=== PATIENT | male | born 1975 | race Caucasian/White ===

== ENCOUNTER 2025-02-25 17:24 | Outpatient (OUT) | payer OTHER, SELFPAY ==
--- OUTSIDE RECORDS SUMMARY | 2025-01-27 06:36 | XMS_ITS | Continuity of Care Document ---
Author Organization [facility] Address [address] [place] [address] Phone Care Team Providers Care Volunteer Assistant Name Role Phone Vick SAWYER, Tristan Unavailable Unavailab le Allergies, Adverse Reactions, Alerts Substance Reaction Status Criticality BUPROPION HCL HivesHives Active No Information Medications Medication Instructions Dosage Effective Dates (start - stop) Status Comments Zoloft 50 mg tablet take 1 tablet by oral route every day 50 MG - Active hydroxyzine HCl 25 mg tablet take 1 tablet by oral route every 12 hours as needed as needed for Anxiety 25 MG - Active metoprolol succinate ER 25 mg tablet,extended release 24 hr take 1 tablet by oral route every day 25 MG - Active Lasix 40 mg tablet take 1 tablet by oral route every 2 days 40 MG - Active Zoloft 50 mg tablet take 1 tablet by oral route every day 50 MG - No Longer Active hydroxyzine HCl 25 mg tablet take 1 tablet by oral route every 12 hours as needed as needed for Anxiety 25 MG - No Longer Active Procedures Procedure Date OFFICE/OUTPATIENT VISIT, EST OFFICE/OUTPATIENT VISIT, EST OFFICE/OUTPATIENT VISIT, EST Bp scrn perf rec interval DIAST BP < 80 MM HG SYST BP < 130 MM HG OFFICE/OUTPATIENT VISIT, EST OFFICE/OUTPATIENT VISIT, EST OFFICE/OUTPATIENT VISIT, NEW Advance Directives Directive Yes / No Effective Date File Name No Information Encounters Encounter Description Practice Location Reason(s) For Visit Diagnoses Date Provider Providers Copied on Encounter [facility], [address] [place] [address], [id number] , [place] tel: [phone] [facility] No Information 5 Vick Hudson. [address] [place] [address], [id number] , [place]. tel: [phone] OFFICE/OUTPA TIENT VISIT, [facility], [address] [place] [address], [id number] , [place] tel: [phone] [facility] Cardiology Referral (chief complaint)dep ression (chief complaint) Body mass index [BMI] 60.0-69.9, adultChronic congestive heart failure, unspecified heart failure typeAnxiety and depressionClass 3 severe obesity with serious comorbidity and body mass index (BMI) of 60.0 to 69.9 in adult, unspecified obesity type 5 Vick Hudson. [address] [place] [address], [id number] , [place]. tel: [phone] OFFICE/OUTPA TIENT VISIT, [facility], [address] [place] [address], [id number] , [place] tel: [phone] [facility] F/U CHF (chief complaint)dep ression (chief complaint)Lab draw (chief complaint) Anxiety and depressionChronic congestive heart failure, unspecified heart failure typeLower extremity edemaObstructive sleep apneaColon cancer screeningScreening for HIV (human immunodeficiency virus)Need for hepatitis C screening testNo vaccination-pt refuseBody mass index [BMI] 50.0-59.9, adult 4 Vick Hudson. [address] [place] [address], [id number] , [place]. tel:[phone] OFFICE/OUTPA TIENT VISIT, [facility], [address] [place] [address], [id number] , [place] tel: [phone] [facility] Work Release (chief complaint) Chronic congestive heart failure, unspecified heart failure typeBody mass index [BMI] 60.0-69.9, adult 4 Vick Hudson. [address] [place] [address], [id number] , [place]. tel:[phone] [facility], [address] [place] [address], [id number] , [place] tel:+ [phone] [facility] No Information 4 Vick Hudson. [address] [place] [address], [id number] , [place]. tel:+ [phone] OFFICE/OUTPA TIENT VISIT, [facility], [address] [place] [address], [id number] , [place] tel:+ [phone] [facility] FMLA Paperwork (chief complaint) Chronic congestive heart failure, unspecified heart failure typeLower extremity edemaObstructive sleep apneaBody mass index [BMI] 60.0-69.9, adult 4 Vick Hudson. [address] [place] [address], [id number] , [place]. tel: [phone] OFFICE/OUTPA TIENT VISIT, [facility], [address] [place] [address], [id number] , [place] tel:+ [phone] [facility] FMLA Paperwork (chief complaint) Body mass index [BMI] 60.0-69.9, adultObstructive sleep apneaChronic congestive heart failure, unspecified heart failure typeLower extremity edema 4 Vick Hudson. [address] [place] [address], [id number] , [place]. tel:[phone] OFFICE/OUTPA TIENT VISIT, [facility], [address] [place] [address], [id number] , [place] tel:[phone] [facility] Establishing Care (chief complaint) Chronic congestive heart failure, unspecified heart failure typeLower extremity edemaAnxiety and depressionObstruct conor sleep apneaBody mass index [BMI] 60.0-69.9, adult 4 Vick Hudson. [address] [facility], [place], [place], [id number] , [place]. tel:[phone] Family History Family Member Type Diagnosis Age At Onset No Information Immunizations Vaccine Date Status Comments Spikevax 12y+ refused Source: New Im munization Record Fluarix/Flulaval refused Source: New Immunization Record Payers Payer name Insurance type Covered alliance party ID Authoriza tion(s) [employer] CI [id number] [employer] CI [id number] Social History Type Description Quantity Date Captured Comments Alcohol Use Details Unknown Caffeine Use Details Unknown Tobacco Use Status No Information Smoking Status No Information Sex Male Sexual Orientation Straight or heterosexual Dec Gender Identity Male Chief Complaint And Reason For Visit No Information Reason For Referral Reason For Referral No Information Plan Of Treatment Date Type Action Status Goal Tdap. Due on due Goal FIT-DNA. Due on due Goal FIT. Due on due Goal Zoster vaccine (). Due on due Goal Hep A. Due on du e Goal Tdap Vaccine. Due on 2024 due Goal Depression screening. Due on due Goal FOBT. Due on due Goal Lipid panel. Due on 029 due Goal PRAPARE ASSESSMENT. Due on due Goal CT-Colonography. Due on due Goal Colonoscopy. Due on 025 due Goal Influenza vaccine. Due on due Goal Unhealthy drug use screening . Due on due Goal Hepatitis C screening. Due o n due Goal Influenza vaccine. Due on Ma due Goal Lipid panel. Due on 029 due Goal Hepatitis C screening. Due o n due Goal Tdap Vaccine. Due on 2024 due Goal Unhealthy drug use screening . Due on due Goal Depression screening. Due on due Goal PRAPARE ASSESSMENT. Due on M due Goal Tdap. Due on due Goal Dietary manageme nt education, guidance, and counseling completed Goal Influenza vaccine. Due on Oc due Goal Hepatitis C screening. Due o n due Goal Lipid panel. Due on 024 due Goal Tdap. Due on due Goal Tdap Vaccine. Due on 2023 due Goal Unhealthy drug use screening . Due on due Goal Depression screening. Due on due Goal Hep A. Due on du e Goal PRAPARE ASSESSMENT. Due on O due Goal Lifestyle education regardin g diet completed Goal Hep A. Due on du e Goal Tdap. Due on due Goal PRAPARE ASSESSMENT. Due on due Goal Influenza vaccine. Due on due Goal Depression screening. Due on due Goal Hepatitis C screening. Due o n due Goal Lipid panel. Due on due Goal Tdap Vaccine. Due on 2023 due Goal Unhealthy drug use screening . Due on due Goal Lifestyle education regardin g diet completed Goal Hepatitis C screening. Due o n due Goal Lipid panel. Due on due Goal Depression screening. Due on due Goal Tdap Vaccine. Due on 2023 due Goal PRAPARE ASSESSMENT. Due on due Goal Unhealthy drug use screening . Due on due Goal Influenza vaccine. Due on due Goal Tdap. Due on due Goal Hep A. Due on du e Goal Hepatitis C screening. Due o n due Goal Tdap Vaccine. Due on 2023 due Goal PRAPARE ASSESSMENT. Due on due Goal Tdap. Due on due Goal Lipid panel. Due on due Goal Depression screening. Due on due Goal Unhealthy drug use screening . Due on due Goal Influenza vaccine. Due on due Goal Lifestyle education regardin g diet completed Goal Hep A. Due on du e Goal Depression screening. Due on due Goal Tdap Vaccine. Due on 2023 due Goal PRAPARE ASSESSMENT. Due on due Goal Influenza vaccine. Due on due Goal Hepatitis C screening. Due o n due Goal Tdap. Due on due Goal Lipid panel. Due on due Goal Unhealthy drug use screening . Due on due Goal Dietary manageme nt education, guidance, and counseling completed Goal Hep A. Due on du e Goal Unhealthy drug use screening . Due on due Goal Influenza vaccine. Due on due Goal Tdap. Due on due Goal Lipid panel. Due on due Goal Depression screening. Due on due Goal Tdap Vaccine. Due on 2023 due Goal Hepatitis C screening. Due o n due Goal PRAPARE ASSESSMENT. Due on due Goal Lifestyle education regardin g diet completed Appointment Gabe Fang BOOKED History Of Present Illness Encounter Date Complaint History Of Prese nt Illness depression This is a follow up visit. Related symptoms are well controlled. The client does not present with anxious/fearful thoughts, depressed mood or thoughts of or suicide. The client denies any aggravating factors. The client's relieving factors are medication. Additional information: Latrice TUTTLE. Cardiology Referral Patient pres ents for Cardiology referral. Patient is currently taking Metoprolol and Lasix. Patient states he was seeing Cardiology in [place] but they never return his call - LACEY Garcia. Lab draw Labs drawn from right antecube in one attempt successful. Patient tolerated well.//Yemi ALLISON F/U CHF States he got hi s CPAP in March and he has been sleeping in his bed now, no longer needs to sleep in recliner. States he was having 120+ APNIC events per hour, now he is down to 3. His bed allows him to raise his legs up while he is sleeping, so he isn't having trouble with swelling in his legs.Says he hasn't needing his hydroxizine since he got his CPAP.States his breathing is much improved. 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 Patient said he did not go to follow-up because he wants to get his weight down by diet and exercise.//Yemi ALLISON depression This is a follow up visit. Related symptoms are controlled. There is improvement of initial symptoms. The client reports functioning as not difficult at all. The client does not present with anxious/fearful thoughts, depressed mood, difficulty concentrating, difficulty falling asleep, difficulty staying asleep, excessive worry, fatigue or thoughts of or suicide. The client denies any aggravating factors. The client's relieving factors are a good response to medication. Additional information: Latrice TUTTLE. Work Release Patient states h e is feeling much better. Doing 2 miles on treadmill without much effort. Was told by to hold hydroxizine for now.Saw Vascular Doctor and is scheduled back in February. Has 2nd sleep study appointment tonight.//Yemi RNSymptoms as results of CHF and lymphedema have significantly improved. Continues with walking on treadmill at home. Believes he is ready to return to work next week as planned without restrictions. Latrice TUTTLE FMLA Paperwork Here to get FMLA paperwork FMLA paperwork filled out.Has sleep study tonight at [facility].//Yemi RNPatient follow up today regarding FMLA and current symptoms for exacerbation of congestive heart failure in October of this year leading to ER visit in [place] due to severe swelling in bilateral legs, respiratory distress, and inability to perform ADLs. At that time due to severity of patient condition he was transferred to [facility] for inpatient admission lasting 2 week prior to being sent to [facility] for 2-3 weeks of rehab. This condition was brought about by undiagnosed and untreated sleep apnea leading to heart failure. Patient required several weeks of diuresis and rehab which continue today in the home. The edema to the legs, shortness of breath and activity intolerance led to the patient continuing to be off of work following rehab. Would also like handicap placjosue in addition to FMLA paperwork completed today. At today's visit patient continues to receive home therapy currently apnea is again untreated as his insurance is requiring an new sleep study for a machine after his release from rehab, that is scheduled for tonight. His activity tolerance remains blunted. Edema improved however remains present. Latrice TUTTLE FMLA Paperwork Patient presents for FMLA paperwork with mother. Patient states he also has questions for provider. No other concerns regarding this appointment - LACEY Garcia.Per patient advised by employer his FMLA runs thru 30th of this month and will need this extended per PCP if he is to require more time off. Uncertain at this point how well he will tolerate work as he would like to return as soon as he is physically able. Current issue would be fatigued rapidly from standing and walking which is what he does constantly at work. Did have his initial consult with sleep however has not been contacted for sleep study scheduling, has called the sleep medicine with not return call. Would like to be set up for home compression devise fro his lymphedema. Is not seeing vascular at this time. Latrice TUTTLE Establishing Care Started off in ER in [place] then he was transferred to [facility] in [place] legs were split and oozing was there 15 days took 20 liters of fluid off of him, also in [facility] for two weeks for CHF for 2 weeks of therapy.Appt with cardiolgy in [place] tomorrow ([facility])Allergies to Wellbutrin- hivesNo smokingDepression//JWHupp RNEstablishing care following admission into hospital for newly diagnosed CHF and edema to legs. Per patient he had 15 years of untreated sleep apnea in which he was diagnosed and did not wear machine. This led to swelling of legs over the past 2 years until last month when both legs started to seep thru open areas of the skin. At that time patient had difficulty breathing for 2-3 months and wheezing. Patient was seen at [facility] and transferred to [facility] and had prolonged stay in ICU. Discharged to extended stay facility for 2 weeks. At this time breathing has improved with no shortness of breath, legs have improved with significantly reduced swelling. Anxiety of the past several years currently well controlled on sertraline. Scheduled with sleep medicine in [place] 01-15-24, cardiology in [place] tomorrow. OT and PT coming to home, OT is lymphedema certified and did have patient start topical skin care for legs. RGonzales [employer]TER Functional Status Date Functional Assessmen t No Information Instructions Date Instruction Additional Infor al 1. Take medications as prescribed.2. Continue or consider counseling3. Exercise regularly4. practice good sleep hygiene.5. Well balanced healthy diet6. Use [facility] Hotline for any suicidal or homicidal ideationsTOLL FREE [phone]. Follow up: 6 month(s)8. Avoid alcohol and drug use Related to Anxiety and depression 1. continue with med ications as ordered2. continue cardiac diet3. Follow up with cardiology 4. ER for worsening of symptoms 5. Follow up: Referral placed to CARDIOLOGY If you have not been contacted per specialist office to which you referred to in 2 weeks please contact the [facility] at [phone] and advise triage nurse. Related to Chronic congestive heart failure, unspecified heart failure type 1. Exercise 30-60 mi nutes 3-5 days per week2. Reduce caloric intake 5083-5335 calorie daily diet3. avoid: fried foodsprocessed foodsrefined sugarsaturated fats4. Increase intake:dietary fiberwhole fruits and vegetableshealthy proteinshealthy unsaturated fats5. ELIMINATE SUGAR FROM ALL BEVERAGES6. Follow up: 6 months7. May self refer to: [facility] [phone] Related to Class 3 severe obesity with serious comorbidity and body mass index (BMI) of 60.0 to 69.9 in adult, unspecified obesity type Giving encouragement to exercise Related to Body mass index [BMI] 60.0-69.9, adult Dietary management e ducation, guidance, and counseling Related to Body mass index [BMI] 60.0-69.9, adult Both COVID-19 vaccin ation and annual influenza vaccinations are recommended by [facility] to those eligible, you can call to schedule via outpatient vaccination clinic at [phone]. 1. COVID-19 booster vaccine call to schedule 2. Influenza vaccination- call to schedule3. PCV 20 recommended- call to schedule Related to No vaccination-pt refuse 1. continued CPAP2. avoid sedative at bed time3. continue with weight loss4. Follow up with Sleep Clinic as scheduled Related to Obstructive sleep apnea 1. Colonoscopy next visit. Relat ed to Colon cancer screening 1. reduce sodium (sa lt) intake to less than 2300mg daily2. elevate legs 4-6 inches above heart in evening3. compression stockings as needed4. Follow up as scheduled5. LASIX as ordered6. ER for worsening of symptoms, redness to legs, shortness of breath or chest pain.7. LEG PNEUMATIC DEVICES ORDERED Related to Lower extremity edema 1. Take medications as prescribed.2. Continue or consider counseling3. Exercise regularly4. practice good sleep hygiene.5. Well balanced healthy diet6. Use [facility] Hotline for any suicidal or homicidal ideationsTOLL FREE [phone]. Follow up: 6 month(s)8. Avoid alcohol and drug use Related to Anxiety and depression 1. continue with med ications as ordered2. continue cardiac diet3. Follow up with cardiology as scheduled4. ER for worsening of symptoms Related to Chronic congestive heart failure, unspecified heart failure type Lifestyle education regarding di et Related to Body mass index [BMI] 50.0-59.9, adult Giving encouragement to exercise Related to Body mass index [BMI] 50.0-59.9, adult 1. Return to work as planned2. Follow up as planned. 3. ER for worsening of symptoms Related to Chronic congestive heart failure, unspecified heart failure type Giving encouragement to exercise Related to Body mass index [BMI] 60.0-69.9, adult Lifestyle education regarding di et Related to Body mass index [BMI] 60.0-69.9, adult 1. medications as be fore2. continue current therapy3. ER immediately for worsening of symptoms4. complete sleep study5. Follow up 2 weeks. Related to Obstructive sleep apnea 1. medications as be fore2. continue current therapy3. ER immediately for worsening of symptoms4. complete sleep study5. Follow up 2 weeks. Related to Lower extremity edema 1. medications as be fore2. continue current therapy3. ER immediately for worsening of symptoms4. complete sleep study5. Follow up 2 weeks. Related to Chronic congestive heart failure, unspecified heart failure type Lifestyle education regarding di et Related to Body mass index [BMI] 60.0-69.9, adult Giving encouragement to exercise Related to Body mass index [BMI] 60.0-69.9, adult 1. Follow up: Referr al placed to Vascular If you have not been contacted per specialist office to which you referred to in 2 weeks please contact the [facility] at [phone] and advise triage nurse. Related to Lower extremity edema 1. request PRASAD costa from work2. follow up 1 week Related to Chronic congestive heart failure, unspecified heart failure type 1. Nursing staff nakia melendez contact sleep medicine and advise of concerns regarding the scheduling for sleep apnea testing. follow up next week in officefollow up with sleep medicine as scheduled Related to Obstructive sleep apnea Dietary management e ducation, guidance, and counseling Related to Body mass index [BMI] 60.0-69.9, adult Giving encouragement to exercise Related to Body mass index [BMI] 60.0-69.9, adult 1. Follow up with eep Lab ASAP2. May sleep with head of bed elevated3. avoid sedatives, hold hydroxyzine at this time. Related to Obstructive sleep apnea 1. reduce sodium (sa lt) intake to less than 2300mg daily2. elevate legs 4-6 inches above heart in evening3. compression stockings as needed4. Follow up as scheduled5. LASIX as ordered6. ER for worsening of symptoms, redness to legs, shortness of breath or chest pain.7. continue with PT and OT For any wounds to legs1. Keep clean and dry2. Cover if open wound3. May use antibiotic ointment if open wound4. Clean with soapy water 1-2 times per day5. Follow up as needed- return immediately for signs of infection Related to Lower extremity edema 1. Take medications as prescribed.2. Consider counseling3. Exercise regularly4. practice good sleep hygiene.5. Well balanced healthy diet6. Use [facility] Hotline for any suicidal or homicidal ideationsTOLL FREE 1-771.419.16297. Follow up: 1-3 month(s)8. Avoid alcohol and drug use Related to Anxiety and depression 1. continue with med ications as ordered2. continue cardiac diet3. Follow up with cardiology as scheduled4. ER for worsening of symptoms Related to Chronic congestive heart failure, unspecified heart failure type Giving encouragement to exercise Related to Body mass index [BMI] 60.0-69.9, adult Lifestyle education regarding di et Related to Body mass index [BMI] 60.0-69.9, adult Assessments Type Assessment Date No Information Patient Care Teams Name Effective Dates (start - stop) Status Members No Information
--- NOTE | 2025-02-25 | XR_ITS ---
The [address] [address] Patient Name: MINI VARGAS MRN: [id number] date: 1975 Sex: M Assigned Patient Location: [facility] Current Patient Location: [facility] Accession/Order Number: [id number] Exam Date: 02/25/2025 17:58 Report Date: 02/25/2025 18:00 At the request of: JEWEL WELCH MD Procedure: XR hand RT min 3V RIGHT HAND - 3 views COMPARISON: None REASON FOR EXAM: Right hand pain FINDINGS: Mild dorsal soft tissue swelling. No evidence of acute fracture-dislocation. Joint spaces preserved. [id number] degenerative changes involving the wrist as partially visualized.. XR/XR hand RT min 3V IMPRESSION: NO ACUTE BONY INJURY. Impression dictated by: Alfonso Mcmanus M.D. 02/25/2025 6:00 PM Dictation Location: [place] [address] Electronically authenticated by: [id number] Date: 02/25/2025 18:00
--- OUTSIDE RECORDS SUMMARY | 2025-02-25 17:35 | XMS_ITS | Clinical Summary ---
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 Monthly or less 11/26/2023 Q2: How many drinks containi ng alcohol do you have on a typical day when you are drinking? 1 or 2 11/26/2023 Q3: How often do you have si x or more drinks on one occasion? Never 11/26/2023 Interpersonal Safety Domain Source: IP Abuse Scr eening Answer Date Recorded Read-Only, Retired: Physical Abuse Denies 11/26/2023 Read-Only, Retired: Verbal Abuse Denies 11/26/2023 Read-Only, Retired: Emotional abuse Denies 11/26/2023 Read-Only, Retired: Financial Abuse Denies 11/26/2023 Read-Only, Retired: Sexual abuse Denies 11/26/2023 Sex and Gender Information Value Date Recorded Sex Assigned at Not on file Legal Sex Male 11:46 AM EST Gender Identity Not on file Sexual Orientation Not on file Last Filed Vital Signs Vital Sign Reading Time Taken Comments Blood Pressure 121/67 11/26/2023 9:44 AM EDT Pulse 110 11/26/2023 9:44 AM EDT Temperature 37.1 C (98.8 F) 11/26/2023 4:30 AM EDT Respiratory Rate 24 11/26/2023 9:44 AM EDT Oxygen Saturation 96% 11/26/2023 9:44 AM EDT Inhaled Oxygen Concentration - - Weight 213.6 kg (471 lb) 11/26/2023 4:33 AM EDT Height 162.6 cm (5' 4 ) 11/26/2023 4:33 AM EDT Body Mass Index 80.85 11/26/2023 4:33 AM EDT Plan of Treatment Health Maintenance Due Date Last Done Comments Depression Screen 1986 HIV screen 1989 Hepatitis C screen 1992 DTaP/Tdap/Td vaccine (1 - Tdap) 1993 Hepatitis B vaccine (1 of 3 - 19+ 3-dose series) 1993 Pneumococcal 50+ years Vacci ne (1 of 2 - PCV) 1993 Lipids 2014 Colonoscopy 12/30/2019 Colorectal Cancer Screen 12/30/2019 FIT/FOBT: Average risk 12/30/2019 Fecal-DNA (Cologuard): Average risk 12/30/2019 Sigmoidoscopy/CT colonography 12/30/2019 COVID-19 Vaccine (1 - 2023-2 5 season) 2024 Shingles vaccine (1 of 2) 2024 Flu vaccine (#1) 02/28/2025 Hepatitis A vaccine Aged Out No longe r eligible based on patient's age to complete this topic Hib vaccine Aged Out No longer eligi ble based on patient's age to complete this topic Meningococcal (ACWY) vaccine Aged Out No longer eligible based on patient's age to complete this topic Meningococcal B vaccine Aged Out No l onger eligible based on patient's age to complete this topic Polio vaccine Aged Out No longer elig ible based on patient's age to complete this topic Insurance [employer]
== END 2025-02-25 17:25 | disposition home or self-care (01) ==
PROVIDERS: PCP Nurse Practitioner Family; Visit Provider Preventive Medicine Preventive Medicine/Occupational Environmental Medicine
DX: M79.641 Pain in right hand (principal)
CPT/HCPCS: 73130